=== PATIENT | female | born 1980 | race Caucasian/White ===

== ENCOUNTER 2016-08-28 20:36 | Emergency (ER) | payer OTHER ==
[2016-08-28 20:45] VITALS: TEMP 97.9; BMI 26.6
[2016-08-28] MEDS ORDERED: SODIUM CHLORIDE 1,000 ML IV STA (22:20)
--- NOTE | 2016-08-28 22:58 | PDOC ---
History of Present Illness - General History Source: Patient Exam Limitations: No Limitations - History of Present Illness Initial Comments: 08/28/16 23:15 The patient is a 36 year old female, A1, with no significant past medical history, who presents to the emergency department with abdominal pain and diarrhea last week. She describes her abdominal pain as localized in the lower quadrants and a constant cramping sensation. She states that the pain ranges from mild to moderate, without radiation. She states that her pain has been exacerbated because she currently has her menstrual cycle. She describes her diarrhea as nonbloody and only had it for one day during the week. The patient denies chest pain, shortness of breath, headache and dizziness. Denies fever, chills, nausea, vomit and constipation. Denies dysuria, frequency , urgency and hematuria. LMP: Current Allergies: None Past surgical history: . Social history: Alcohol use. No tobacco or drug use reported PMD - Dr. Sonia Menjivar <Arya Lind - Last Filed: 08/28/16 23:15> - General History Source: Patient Exam Limitations: No Limitations <Braeden Carrasco - Last Filed: 08/29/16 02:01> <Tracie Mackey - Last Filed: 08/29/16 05:56> <Ward Pacheco - Last Filed: 08/29/16 09:22> - General Chief Complaint: Pain, Acute Stated Complaint: LOWER ABD PAIN Time Seen by Provider: 08/28/16 21:46 Past History <Arya Lind - Last Filed: 08/28/16 23:15> - Past Medical History Asthma: No Cancer: No Cardiac Disorders: No Diabetes: No HTN: No Seizures: No Thyroid Disease: No - Reproductive History (#): 3 Para: 1 Cervical CA: No Dysfunctional Uterine Bleeding: No Ectopic : No Endometrial CA: No Polycystic Ovaries: No Therapeutic (s) & number: No Tubal Ligation: No Spontaneous : 1 - Immunization History Immunization Up to Date: Yes - Psycho/Social/Smoking Cessation Hx Anxiety: No Suicidal Ideation: No Smoking History: Never smoked Have you smoked in the past 12 months: No Number of Cigarettes Smoked Daily: 0 If you are a former smoker, when did you quit?: 2012 Hx Alcohol Use: No Drug/Substance Use Hx: No Substance Use Type: Alcohol Hx Substance Use Treatment: No <Braeden Carrasco - Last Filed: 08/29/16 02:01> <NarendraTracie - Last Filed: 08/29/16 05:56> <Ward Pacheco - Last Filed: 08/29/16 09:22> - Past Medical History Allergies/Adverse Reactions: Allergies Allergy/AdvReac Type Severity Reaction Status Date / Time No Known Allergies Allergy Verified 08/28/16 20:45 Home Medications: Ambulatory Orders NK [No Known Home Medication] 08/29/16 Review of Systems - Review of Systems Able to Perform ROS?: Yes Comments:: 08/28/16 23:15 GENERAL/CONSTITUTIONAL: No fever or chills. No weakness. HEAD, EYES, EARS, NOSE AND THROAT: No change in vision. No ear pain or discharge. No sore throat. CARDIOVASCULAR: No chest pain or shortness of breath RESPIRATORY: No cough, wheezing, or hemoptysis. GASTROINTESTINAL: +Abdominal pain and diarrhea. No nausea, vomiting, constipation. GENITOURINARY: No dysuria, frequency, or change in urination. MUSCULOSKELETAL: No joint or muscle swelling or pain. No neck or back pain. SKIN: No rash NEUROLOGIC: No headache, vertigo, loss of consciousness, or change in strength/ sensation. ENDOCRINE: No increased thirst. No abnormal weight change HEMATOLOGIC/LYMPHATIC: No anemia, easy bleeding, or history of blood clots. ALLERGIC/IMMUNOLOGIC: No hives or skin allergy. <Arya Lind - Last Filed: 08/28/16 23:15> *Physical Exam - Vital Signs Last Vital Signs Temp Pulse Resp BP Pulse Ox 97.9 F 71 20 97/55 98 08/28/16 20:43 08/28/16 20:43 08/28/16 20:43 08/28/16 20:43 08/28/16 20:43 - Physical Exam Comments: 08/28/16 23:15 GENERAL: Awake, alert, and fully oriented, in no acute distress HEAD: No signs of trauma, normocephalic, atraumatic EYES: PERRLA, EOMI, sclera anicteric, conjunctiva clear ENT: Auricles normal inspection, hearing grossly normal, nares patent, oropharynx clear without exudates. Moist mucosa NECK: Normal ROM, supple, no lymphadenopathy, JVD, or masses LUNGS: No distress, speaks full sentences, clear to auscultation bilaterally HEART: Regular rate and rhythm, normal S1 and S2, no murmurs, rubs or gallops, peripheral pulses normal and equal bilaterally. ABDOMEN: Soft, nontender, normoactive bowel sounds. No guarding, no rebound. No masses EXTREMITIES: Normal inspection, Normal range of motion, no edema. No clubbing or cyanosis. NEUROLOGICAL: Cranial nerves II through XII grossly intact. Normal speech, normal gait, no focal sensorimotor deficits SKIN: Warm, Dry, normal turgor, no rashes or lesions noted. <Arya Lind - Last Filed: 08/28/16 23:15> - Vital Signs Last Vital Signs Temp Pulse Resp BP Pulse Ox 97.9 F 71 20 97/55 98 08/28/16 20:43 08/28/16 20:43 08/28/16 20:43 08/28/16 20:43 08/28/16 20:43 <Braeden Carrasco - Last Filed: 08/29/16 02:01> - Vital Signs Last Vital Signs Temp Pulse Resp BP Pulse Ox 97.9 F 66 16 96/59 100 08/29/16 03:24 08/29/16 05:26 08/29/16 05:26 08/29/16 05:26 08/29/16 05:26 <Tracie Mackey - Last Filed: 08/29/16 05:56> - Vital Signs Last Vital Signs Temp Pulse Resp BP Pulse Ox 97.9 F 66 16 96/59 100 08/29/16 03:24 08/29/16 05:26 08/29/16 05:26 08/29/16 05:26 08/29/16 05:26 <Ward Pacheco - Last Filed: 08/29/16 09:22> ED Treatment Course - LABORATORY CBC & Chemistry Diagram: 08/28/16 23:24 08/29/16 00:27 - RADIOLOGY Radiology Studies Ordered: Category Date Time Status ABDOMEN & PELVIS CT WITH CONTR [CT] Stat CT Scan 08/28/16 22:34 Ordered <Braeden Carrasco - Last Filed: 08/29/16 02:01> - LABORATORY CBC & Chemistry Diagram: 08/28/16 23:24 08/29/16 00:27 - ADDITIONAL ORDERS Additional order review: Laboratory Results 08/29/16 08/29/16 08/28/16 00:27 00:27 23:24 Sodium 142 Cancelled Potassium 4.0 Cancelled Chloride 106 Cancelled Carbon Dioxide 27 D Cancelled Anion Gap 9 Cancelled BUN 16 Cancelled Creatinine 0.7 Cancelled Creat Clearance w eGFR > 60 Cancelled Random Glucose 103 D Cancelled Calcium 8.7 Cancelled Total Bilirubin 0.2 Cancelled AST 11 L D Cancelled ALT 15 Cancelled Alkaline Phosphatase 65 D Cancelled Total Protein 7.0 Cancelled Albumin 3.7 D Cancelled Lipase 100 Cancelled Serum , Qual Negative 08/28/16 23:24 Sodium Potassium Chloride Carbon Dioxide Anion Gap BUN Creatinine Creat Clearance w eGFR Random Glucose Calcium Total Bilirubin AST ALT Alkaline Phosphatase Total Protein Albumin Lipase Serum , Qual Cancelled 08/28/16 23:24 RBC 3.86 D MCV 90.5 MCHC 32.8 RDW 14.6 MPV 10.5 Neutrophils % 49.2 D Lymphocytes % 40.9 H D Monocytes % 7.3 Eosinophils % 2.2 Basophils % 0.4 - Medications Given in the ED: ED Medications Discontinued Medications Generic Name Dose Route Start Last Admin Trade Name Freq PRN Reason Stop Dose Admin Sodium Chloride 1,000 mls @ 1,000 mls/hr 08/28/16 22:20 08/28/16 23:32 Normal Saline - IV 08/28/16 23:19 1,000 mls/hr ASDIR STA Administration Morphine Sulfate 4 mg 08/28/16 23:27 08/28/16 23:56 Morphine Injection - IVPUSH 08/28/16 23:28 4 mg ONCE ONE Administration Morphine Sulfate 4 mg 08/29/16 04:07 08/29/16 04:15 Morphine Injection - IVPUSH 08/29/16 04:08 4 mg ONCE ONE Administration <Tracie Mackey - Last Filed: 08/29/16 05:56> - LABORATORY CBC & Chemistry Diagram: 08/28/16 23:24 08/29/16 00:27 - ADDITIONAL ORDERS Additional order review: Laboratory Results 08/29/16 08/29/16 08/28/16 00:27 00:27 23:24 Sodium 142 Cancelled Potassium 4.0 Cancelled Chloride 106 Cancelled Carbon Dioxide 27 D Cancelled Anion Gap 9 Cancelled BUN 16 Cancelled Creatinine 0.7 Cancelled Creat Clearance w eGFR > 60 Cancelled Random Glucose 103 D Cancelled Calcium 8.7 Cancelled Total Bilirubin 0.2 Cancelled AST 11 L D Cancelled ALT 15 Cancelled Alkaline Phosphatase 65 D Cancelled Total Protein 7.0 Cancelled Albumin 3.7 D Cancelled Lipase 100 Cancelled Serum , Qual Negative 08/28/16 23:24 Sodium Potassium Chloride Carbon Dioxide Anion Gap BUN Creatinine Creat Clearance w eGFR Random Glucose Calcium Total Bilirubin AST ALT Alkaline Phosphatase Total Protein Albumin Lipase Serum , Qual Cancelled 08/28/16 23:24 RBC 3.86 D MCV 90.5 MCHC 32.8 RDW 14.6 MPV 10.5 Neutrophils % 49.2 D Lymphocytes % 40.9 H D Monocytes % 7.3 Eosinophils % 2.2 Basophils % 0.4 - Medications Given in the ED: ED Medications Discontinued Medications Generic Name Dose Route Start Last Admin Trade Name Freq PRN Reason Stop Dose Admin Sodium Chloride 1,000 mls @ 1,000 mls/hr 08/28/16 22:20 08/28/16 23:32 Normal Saline - IV 08/28/16 23:19 1,000 mls/hr ASDIR STA Administration Morphine Sulfate 4 mg 08/28/16 23:27 08/28/16 23:56 Morphine Injection - IVPUSH 08/28/16 23:28 4 mg ONCE ONE Administration Morphine Sulfate 4 mg 08/29/16 04:07 08/29/16 04:15 Morphine Injection - IVPUSH 08/29/16 04:08 4 mg ONCE ONE Administration <Ward Pacheco - Last Filed: 08/29/16 09:22> Medical Decision Making - Medical Decision Making 08/28/16 22:55 A portion of this note was documented by scribe services under my direction. I have reviewed the details of the note, within reason, and agree with the documentation with the following case summary and management plan written by me. Patient treated in the ED. Nursing notes are reviewed and incorporated into the medical decision-making. Vital signs reviewed. Peripheral IV access obtained by the nurse, laboratory studies are drawn and sent, reviewed and interpreted by myself. Vital Signs Temp Pulse Resp BP Pulse Ox 97.9 F 71 20 97/55 98 08/28/16 20:43 08/28/16 20:43 08/28/16 20:43 08/28/16 20:43 08/28/16 20:43 36-year-old female with history of anemia presents with acute on chronic lower abdominal pain for 11 weeks. Patient has had a 11 weeks ago. That was comp dictated by placenta abruptio. Since then, patient has had baseline lower to lower left abdominal pain. However, in this past week, the patient has had severely worsening pain with no exacerbating or improving factors. Denies fevers or chills. Several days ago, the patient did have some loose stooling and diarrhea. Denies dysuria, urinary frequency. Currently denies abdominal pain now. Came into the ER for further violation. We'll evaluate for diverticulitis, adhesions, irritable bowel disease, other abdominal pathologies with CT scan. If workup is negative, the patient should be recommended for GI follow-up for potential colonoscopy. 08/29/16 02:02 [facility] attending Dr. Day for further management. <Braeden Carrasco - Last Filed: 08/29/16 02:01> - Medical Decision Making 08/29/16 09:[address] Mcneill for surgical consultation. No surgical indication at this time. She is to follow up with her doctor. <Ward Pacheco - Last Filed: 08/29/16 09:22> *DC/Admit/Observation/Transfer - Attestations Scribe Attestion: 08/28/16 23:15 Documentation prepared by Arya Lind, acting as medical transcription radiology for Braeden Carrasco MD. <Arya Lind - Last Filed: 08/28/16 23:15> <Braeden Carrasco - Last Filed: 08/29/16 02:01> <Tracie Mackey - Last Filed: 08/29/16 05:56> - Discharge Dispostion Admit: No <Ward Pacheco - Last Filed: 08/29/16 09:22> Diagnosis at time of Disposition: Hernia, Abdominal pain - Discharge Dispostion Disposition: HOME Condition at time of disposition: Stable - Referrals Referrals: Sonia Menjivar MD [Primary Care Provider] -
[2016-08-28] MEDS ORDERED: morphine CARPU-JECT 4 MG/1 ML DISP.SYRIN IVPUSH ONE (23:27)
[2016-08-28] MEDS ORDERED: morphine CARPU-JECT 4 MG/1 ML DISP.SYRIN ONE (23:49)
[2016-08-28 23:53] LABS: BASOPHIL 0.4 % (0-2.0); EOSINOPHIL 2.2 % (0-4.5); MCH 29.7 pg (25.7-33.7); MCHC 32.8 g/dl (32.0-36.0); MEAN CELL VOLUME 90.5 fl (80-96); MEAN PLT VOLUME 10.5 fl (7.5-11.1); NEUTROPHILS 49.2 % (42.8-82.8); PLATELET COUNT 278 K/MM3 (134-434); RDW 14.6 % (11.6-15.6); WHITE BLOOD COUNT 6.8 K/mm3 (4.0-10.0)
[2016-08-29 01:45] LABS: ALBUMIN 3.7 g/dl (3.4-5.0); ALK PHOS 65 U/L (45-117); ANION GAP 9 (8-16); BILIRUBIN,TOTAL 0.2 mg/dL (0.2-1.0); CALCIUM 8.7 mg/dL (8.5-10.1); CO2 27 mmol/L (21-32); CREATININE 0.7 mg/dL (0.55-1.02); GLUCOSE,RANDOM 103 mg/dL (74-106); SGOT/AST 11 U/L (15-37); SGPT/ALT 15 U/L (12-78)
[2016-08-29] MEDS ORDERED: morphine CARPU-JECT 2 MG/1 ML DISP.SYRIN IVPUSH ONE (04:07)
[2016-08-29] MEDS ORDERED: morphine CARPU-JECT 4 MG/1 ML DISP.SYRIN ONE (04:08)
[2016-08-29 05:26] VITALS: BP 96/59; PULSE 66
--- NOTE | 2016-08-29 05:55 | PDOC ---
*Physical Exam - Vital Signs Last Vital Signs Temp Pulse Resp BP Pulse Ox 97.9 F 66 16 96/59 100 08/29/16 03:24 08/29/16 05:26 08/29/16 05:26 08/29/16 05:26 08/29/16 05:26 <Tracie Mackey - Last Filed: 08/29/16 05:57> - Vital Signs Last Vital Signs Temp Pulse Resp BP Pulse Ox 97.9 F 66 16 96/59 100 08/29/16 03:24 08/29/16 05:26 08/29/16 05:26 08/29/16 05:26 08/29/16 05:26 - Physical Exam General Appearance: Yes: Nourished <Arya Day - Last Filed: 08/29/16 19:29> ED Treatment Course - LABORATORY CBC & Chemistry Diagram: 08/28/16 23:24 08/29/16 00:27 - ADDITIONAL ORDERS Additional order review: Laboratory Results 08/29/16 08/29/16 08/28/16 00:27 00:27 23:24 Sodium 142 Cancelled Potassium 4.0 Cancelled Chloride 106 Cancelled Carbon Dioxide 27 D Cancelled Anion Gap 9 Cancelled BUN 16 Cancelled Creatinine 0.7 Cancelled Creat Clearance w eGFR > 60 Cancelled Random Glucose 103 D Cancelled Calcium 8.7 Cancelled Total Bilirubin 0.2 Cancelled AST 11 L D Cancelled ALT 15 Cancelled Alkaline Phosphatase 65 D Cancelled Total Protein 7.0 Cancelled Albumin 3.7 D Cancelled Lipase 100 Cancelled Serum , Qual Negative 08/28/16 23:24 Sodium Potassium Chloride Carbon Dioxide Anion Gap BUN Creatinine Creat Clearance w eGFR Random Glucose Calcium Total Bilirubin AST ALT Alkaline Phosphatase Total Protein Albumin Lipase Serum , Qual Cancelled 08/28/16 23:24 RBC 3.86 D MCV 90.5 MCHC 32.8 RDW 14.6 MPV 10.5 Neutrophils % 49.2 D Lymphocytes % 40.9 H D Monocytes % 7.3 Eosinophils % 2.2 Basophils % 0.4 - Medications Given in the ED: ED Medications Discontinued Medications Generic Name Dose Route Start Last Admin Trade Name Freq PRN Reason Stop Dose Admin Sodium Chloride 1,000 mls @ 1,000 mls/hr 08/28/16 22:20 08/28/16 23:32 Normal Saline - IV 01/25/17 23:19 1,000 mls/hr ASDIR STA Administration Morphine Sulfate 4 mg 08/28/16 23:27 08/28/16 23:56 Morphine Injection - IVPUSH 08/28/16 23:28 4 mg ONCE ONE Administration Morphine Sulfate 4 mg 08/29/16 04:07 08/29/16 04:15 Morphine Injection - IVPUSH 08/29/16 04:08 4 mg ONCE ONE Administration <Tracie Mackey - Last Filed: 08/29/16 05:57> - LABORATORY CBC & Chemistry Diagram: 08/28/16 23:24 08/29/16 00:27 - ADDITIONAL ORDERS Additional order review: Laboratory Results 08/29/16 08/29/16 08/28/16 00:27 00:27 23:24 Sodium 142 Cancelled Potassium 4.0 Cancelled Chloride 106 Cancelled Carbon Dioxide 27 D Cancelled Anion Gap 9 Cancelled BUN 16 Cancelled Creatinine 0.7 Cancelled Creat Clearance w eGFR > 60 Cancelled Random Glucose 103 D Cancelled Calcium 8.7 Cancelled Total Bilirubin 0.2 Cancelled AST 11 L D Cancelled ALT 15 Cancelled Alkaline Phosphatase 65 D Cancelled Total Protein 7.0 Cancelled Albumin 3.7 D Cancelled Lipase 100 Cancelled Serum , Qual Negative 08/28/16 23:24 Sodium Potassium Chloride Carbon Dioxide Anion Gap BUN Creatinine Creat Clearance w eGFR Random Glucose Calcium Total Bilirubin AST ALT Alkaline Phosphatase Total Protein Albumin Lipase Serum , Qual Cancelled 08/28/16 23:24 RBC 3.86 D MCV 90.5 MCHC 32.8 RDW 14.6 MPV 10.5 Neutrophils % 49.2 D Lymphocytes % 40.9 H D Monocytes % 7.3 Eosinophils % 2.2 Basophils % 0.4 - Medications Given in the ED: ED Medications Discontinued Medications Generic Name Dose Route Start Last Admin Trade Name Freq PRN Reason Stop Dose Admin Sodium Chloride 1,000 mls @ 1,000 mls/hr 08/28/16 22:20 08/28/16 23:32 Normal Saline - IV 08/28/16 23:19 1,000 mls/hr ASDIR STA Administration Morphine Sulfate 4 mg 08/28/16 23:27 08/28/16 23:56 Morphine Injection - IVPUSH 08/28/16 23:28 4 mg ONCE ONE Administration Morphine Sulfate 4 mg 08/29/16 04:07 08/29/16 04:15 Morphine Injection - IVPUSH 08/29/16 04:08 4 mg ONCE ONE Administration <Arya Day - Last Filed: 08/29/16 19:29> Medical Decision Making - Medical Decision Making 08/29/16 05:[address] Jayson Mcneill (via cell phone) at 5:48 and case was discussed. Spoke to Dr. Mcneill and was told that pt will have a surgical consult by one of the surgical PA in the morning. <Tracie Mackey - Last Filed: 08/29/16 05:57> *DC/Admit/Observation/Transfer <Tracie Mackey - Last Filed: 08/29/16 05:57> <Arya Day - Last Filed: 08/29/16 19:29> Diagnosis at time of Disposition: Hernia, Abdominal pain - Discharge Dispostion Disposition: HOME Condition at time of disposition: Stable - Referrals Referrals: Sonia Menjivar MD [Primary Care Provider] - - Patient Instructions Printed Discharge Instructions: DI for Abdominal Pain-Adult, Abdominal Hernia - Post Discharge Activity
--- NOTE | 2016-08-29 09:34 | CONSULT ---
Consultation: REQUESTING PROVIDER: Tara CONTEH CONSULT REQUEST: We have been asked to surgically evaluate this patient for abdominal pain HISTORY OF PRESENT ILLNESS: Sudden lower abdominal pain emanating from her C-S scar x 11 weeks; pulling; burning; no nausea and/or vomiting; normal bm's; o/w negative. REVIEW OF SYSTEMS: CONSTITUTIONAL: Absent: fever, chills, diaphoresis, generalized weakness, malaise, loss of appetite, weight change CARDIOVASCULAR: Absent: chest pain, syncope, palpitations, irregular heart rate, lightheadedness , peripheral edema RESPIRATORY: Absent: cough, shortness of breath, dyspnea with exertion, orthopnea, wheezing, stridor, hemoptysis GASTROINTESTINAL: Absent: abdominal pain, abdominal distension, nausea, vomiting, diarrhea, constipation, melena, hematochezia; ?? colitis ?? in the past GENITOURINARY: Absent: dysuria, frequency, urgency, hesitancy, hematuria, flank pain, genital pain MUSCULOSKELETAL: Absent: myalgia, arthralgia, joint swelling, back pain, neck pain SKIN: Absent: rash, itching, pallor HEMATOLOGIC/IMMUNOLOGIC: Absent: easy bleeding, easy bruising, lymphadenopathy, frequent infections NEUROLOGIC: Absent: headache, focal weakness or paresthesias, dizziness, unsteady gait, seizure, mental status changes, bladder or bowel incontinence PSYCHIATRIC: Absent: anxiety, depression, suicidal or homicidal ideation, hallucinations. PHYSICAL EXAMINATION Vital Signs Temperature 97.9 F 08/29/16 03:24 Pulse Rate 66 08/29/16 05:26 Respiratory Rate 16 08/29/16 05:26 Blood Pressure 96/59 08/29/16 05:26 O2 Sat by Pulse Oximetry (%) 100 08/29/16 05:26 GENERAL: Awake, alert, and fully oriented, in no acute distress. HEAD: Normal with no signs of trauma. ABDOMEN: Soft, nontender, not distended, normoactive bowel sounds, no guarding, no rebound, no masses. No hepatomegaly or splenomegaly. Healed C-S scar; diastasis at the umbilicus w/ small reducible umbilical/incisional hernia; o/w negative. MUSCULOSKELETAL: Normal range of motion at all joints. No bony deformities or tenderness. No CVA tenderness. UPPER EXTREMITIES: 2+ pulses, warm, well-perfused. No cyanosis. Cap refill <2 seconds. No peripheral edema. LOWER EXTREMITIES: 2+ pulses, warm, well-perfused. No calf tenderness. No peripheral edema. NEUROLOGICAL: Normal speech, gait not observed. PSYCH: Cooperative. Good eye contact. Appropriate mood and affect. SKIN: Warm, dry, normal turgor, no rashes or lesions noted. LABS: Laboratory Results - last 24 hr 08/28/16 08/28/16 08/28/16 23:24 23:24 23:24 WBC 6.8 RBC 3.86 D Hgb 11.5 D Hct 34.9 D MCV 90.5 MCHC 32.8 RDW 14.6 Plt Count 278 D MPV 10.5 Neutrophils % 49.2 D Lymphocytes % 40.9 H D Monocytes % 7.3 Eosinophils % 2.2 Basophils % 0.4 Sodium Cancelled Potassium Cancelled Chloride Cancelled Carbon Dioxide Cancelled Anion Gap Cancelled BUN Cancelled Creatinine Cancelled Creat Clearance w eGFR Cancelled Random Glucose Cancelled Calcium Cancelled Total Bilirubin Cancelled AST Cancelled ALT Cancelled Alkaline Phosphatase Cancelled Total Protein Cancelled Albumin Cancelled Lipase Cancelled Serum , Qual Cancelled 08/29/16 08/29/16 00:27 00:27 WBC RBC Hgb Hct MCV MCHC RDW Plt Count MPV Neutrophils % Lymphocytes % Monocytes % Eosinophils % Basophils % Sodium 142 Potassium 4.0 Chloride 106 Carbon Dioxide 27 D Anion Gap 9 BUN 16 Creatinine 0.7 Creat Clearance w eGFR > 60 Random Glucose 103 D Calcium 8.7 Total Bilirubin 0.2 AST 11 L D ALT 15 Alkaline Phosphatase 65 D Total Protein 7.0 Albumin 3.7 D Lipase 100 Serum , Qual Negative CT a/p: stool in colon; pelvic fluid c/w possible ruptured ovarian cysts b/l; small hernia at the umbilicus w/diastasis A/P: non surgical abdominal pain No acute surgical intervention indicated; suggest ORDER PLANNER f/u; and office f/u for re -evaluation after a few more weeks; d/w patient in depth. Jayson Mcneill MD FACS Problem List - Problems (1) Hernia Code(s): K46.9 - UNSPECIFIED ABDOMINAL HERNIA WITHOUT OBSTRUCTION OR GANGRENE Visit type - Case Type Case Type: ED Admission - Emergency Emergency Visit: Yes ED Registration Date: 08/29/16 Care time: The patient presented to the Emergency Department on the above date and was hospitalized for further evaluation of their emergent condition. - New patient This patient is new to me today: Yes Date on this admission: 08/29/16 - Critical Care Critical Care patient: No
== END 2016-08-29 10:13 | disposition home or self-care (01) ==
LOC: JER 20:36
PROC: 3E0337Z Introduction of Electrolytic and Water Balance Substance into Peripheral Vein, Percutaneous Approach (ICD-10-PCS; principal; 2016-08-28)
PROC: 3E033NZ Introduction of Analgesics, Hypnotics, Sedatives into Peripheral Vein, Percutaneous Approach (ICD-10-PCS; 2016-08-28)
DX: K45.8 Other specified abdominal hernia without obstruction or gangrene (principal)
CPT/HCPCS: 36415; 74177-TC; 80053; 81003; 83690; 84703; 85025; 99283-25

== ENCOUNTER 2017-09-18 14:17 | Emergency (ER) | payer OTHER ==
[2017-09-18 15:13] VITALS: BP 102/67; PULSE 74; TEMP 98; BMI 27.4
--- NOTE | 2017-09-18 15:14 | PDOC ---
Rapid Medical Evaluation Chief Complaint: Back Pain Time Seen by Provider: 09/18/17 15:11 Medical Evaluation: Allergies Allergy/AdvReac Type Severity Reaction Status Date / Time No Known Allergies Allergy Verified 09/18/17 15:08 09/18/17 15:11 pt c/o: left upper back after strenous activity, no meds taken today Pt on brief exam: tender over generalized trapezuis Pt ordered for : none pt to proceed to the ED: Discharge Disposition - Diagnosis Upper back pain on left side - Referrals - Patient Instructions - Post Discharge Activity
--- NOTE | 2017-09-18 15:37 | PDOC ---
History of Present Illness - General Chief Complaint: Back Pain Stated Complaint: BLACK PAIN Time Seen by Provider: 09/18/17 15:11 History Source: Patient Exam Limitations: No Limitations - History of Present Illness Initial Comments: 09/18/17 15:24 CHIEF COMPLAINT: [Upper back pain] HISTORY OF PRESENT ILLNESS: Patient is a 37-year-old female history of history of anxiety reports recently has been working out intensely, 2 days prior. Large amounts of pushups. Yesterday when pulling up the garage door felt spasm to upper part of back and neck. Denies any respiratory difficulty, no shortness of breath or chest pain. Pain is only reproducible with range of motion to upper extremities REVIEW OF SYSTEMS: GENERAL: Afebrile, denies any weakness RESPIRATORY: No cough, wheezing, or hemoptysis. CARDIAC: No chest pain or shortness of breath MUSCULOSKELETAL: Pain to generalized upper back and arms. No point tenderness. Pain worse on [left then the right ] SKIN : No erythema, no bruising, no deformity. GI/: Denies any abdominal pain, no urinary difficulty, incontinence or urinary retention. RECTAL: Denies any difficulty this A.m. NEUROLOGICAL: Denies any numbness or tingling. No neurosensory deficits. PHYSICAL EXAM: GENERAL: The patient is awake, alert, and fully oriented, in no acute distress. RESPIRATORY: Lungs clear bilaterally, no rhonchi wheezes or crackles CARDIAC: S1-S2 audible, no murmur rub or gallop MUSCULOSKELETAL: Pain to generalized upper back, into neck, no tingling or sensory deficit. Less than 2 second cap refill, +4 popliteal and pedal pulses. GI/: Abdomen soft, nontender, nondistended. No rebound tenderness. No masses palpable. MUSCULOSKELETAL: No spinal point tenderness. Normal reflexive and no deficits to sensation or strength. RECTAL: [Deferred patient with no neurological findings] SKIN: Warm, Dry, normal turgor, no erythema, no edema no bruising. 09/18/17 15:55 Past History - Past Medical History Allergies/Adverse Reactions: Allergies Allergy/AdvReac Type Severity Reaction Status Date / Time No Known Allergies Allergy Verified 09/18/17 15:08 Home Medications: Ambulatory Orders Cyclobenzaprine HCl [Flexeril 10 mg] 10 mg PO BID PRN #20 tablet MDD 2 09/18/17 Naproxen [Naprosyn] 500 mg PO BID #20 tablet 09/18/17 Anemia: Yes Asthma: No Cancer: No Cardiac Disorders: No CVA: No COPD: No Diabetes: No HTN: No Seizures: No Thyroid Disease: No - Reproductive History (#): 3 Para: 1 Cervical CA: No Dysfunctional Uterine Bleeding: No Ectopic : No Endometrial CA: No Polycystic Ovaries: No Therapeutic (s) & number: No Tubal Ligation: No Spontaneous : 1 - Immunization History Immunization Up to Date: Yes - Suicide/Smoking/Psychosocial Hx Smoking History: Never smoked Have you smoked in the past 12 months: No Number of Cigarettes Smoked Daily: 0 If you are a former smoker, when did you quit?: 2012 Information on smoking cessation initiated: No Hx Alcohol Use: No Drug/Substance Use Hx: No Substance Use Type: Alcohol Hx Substance Use Treatment: No *Physical Exam - Vital Signs Last Vital Signs Temp Pulse Resp BP Pulse Ox 98.0 F 74 17 102/67 98 09/18/17 15:09 09/18/17 15:09 09/18/17 15:09 09/18/17 15:09 09/18/17 15:09 Medical Decision Making - Medical Decision Making 09/18/17 15:59 A/P: Patient with most likely from overexertion in exercising. Total 60 mg IM given to patient, will reevaluate 09/18/17 16:46 Patient reports pain feels better after Toradol DC patient on Naprosyn and Flexeril, encourage patient not to exercise intensely until pain is resolved. *DC/Admit/Observation/Transfer Diagnosis at time of Disposition: Upper back pain on left side - Discharge Dispostion Disposition: HOME Condition at time of disposition: Stable Admit: No - Prescriptions Prescriptions: Cyclobenzaprine HCl [Flexeril 10 mg] 10 mg PO BID PRN #20 tablet MDD 2 PRN Reason: Pain Naproxen [Naprosyn] 500 mg PO BID #20 tablet - Referrals Referrals: Jayson Day MD [Staff Physician] - - Patient Instructions Additional Instructions: 1. Please return to the emergency department with any numbness, tingling, weakness, numbness or tingling to groin or legs, or loss of bowel or bladder function. 2. Use pain medication as ordered. 3. Please is to followup in the office of for evaluation within a week if no improvement. 4. Ice or heat 5. Refrain from lifting anything above 10 pounds, until pain resolved. - Post Discharge Activity
[2017-09-18] MEDS ORDERED: KETOROLAC TROMETHAMINE 60 MG/2 ML VIAL IM ONE (15:44)
== END 2017-09-18 17:06 | disposition home or self-care (01) ==
LOC: JERFT 14:17
PROC: 3E0233Z Introduction of Anti-inflammatory into Muscle, Percutaneous Approach (ICD-10-PCS; principal; 2017-09-18)
DX: M54.89 Other dorsalgia (principal); X50.0XXA Overexertion from strenuous movement or load, initial encounter; Y93.B9 Activity, other involving muscle strengthening exercises; Y92.89 Other specified places as the place of occurrence of the external cause; Y99.8 Other external cause status
CPT/HCPCS: 99281-25